=== PATIENT | female | born 2000 | race Caucasian/White ===

== ENCOUNTER 2023-10-29 16:30 | Outpatient (RCR) | payer OTHER, SELFPAY ==
--- NOTE | 2023-09-10 17:43 | OPREHPOC ---
Outpatient Therapy Plan of Care This is a Multidisciplinary Plan of Care that may contain components documented by all disciplines (PT, OT, and ST.) PT Problem 1 PT Problem #1 Knowledge Deficit PT Goal 1 Goal [place] with HEP Target Visit 4 PT Problem 2 PT Problem #2 Impaired Strength PT Goal 1 Goal Improve R rotator external rotation strength to 5/ 5 to improve stability with ADL performance Target Visit 8 PT Goal 2 Goal Improve anna periscapular strength to 4/5 to improve scapular stability with ADL performance Target Visit 8 PT Problem 3 PT Problem #3 Pain PT Goal 1 Goal Report consistent days of 0/10 pain and 75% improvement in quality of sleep Target Visit 8
--- NOTE | 2023-09-10 17:43 | PTOPEVAL1 ---
Assessment and note entered by Gilbert Mcdonald, PT Evaluation Information Assessment Status Evaluation ICD-10 Condition Codes (PT) Cervicalgia M54.2 Onset 2020 Subjective Information Reports that she has had neck issues since high school. Reports no significant change in pain but seeking treatment. Denies any radiating pain at this time. She has history of lifting but has not been doing it recently. She has always had sleeping issues and has discomfort when laying down. She is R handed. She visited chiropractic but did not follow through with treatment. Reported Pain Level Pain Score 1: Self Report Assessment PT Clinical Summary Patient presents with signs and symptoms consistent with shoulder impingement and postural strain of cervical spine. 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 Plan of Care Interventions Electrical Stimulation,Hot Pack/Cold Pack,Manual Therapy,Neuro Re-education,Therapeutic Activities, Therapeutic Exercise Other Interventions Dry Needling PT Services Indicated Yes Treatment Frequency and 1x/week for 8 visits Duration These treatments will address the objective and functional deficits as defined above. The patient will be advanced safely and appropriately in order for the patient to progress towards his/her prior level of function. Additional exercises will be introduced and as well as a comprehensive home exercise program upon discharge, if needed, ?to ensure carryover of functional gains achieved in the clinic. This treatment plan has been reviewed and agreement upon by the patient.
--- NOTE | 2023-10-29 17:27 | PTOPDC ---
Assessment and note entered by Gilbert Mcdonald, PT Evaluation Information Assessment Status Discharge ICD-10 Condition Codes (PT) Cervicalgia M54.2 Onset 2020 Subjective Information Reports that she has had neck issues since high school. Reports no significant change in pain but seeking treatment. Denies any radiating pain at this time. She has history of lifting but has not been doing it recently. She has always had sleeping issues and has discomfort when laying down. She is R handed. She visited chiropractic but did not follow through with treatment. Reported Pain Level Pain Score 6: Self Report Assessment PT Clinical Summary Patient met majority of goals for therapy at this time. Radicular effects are minimal and she has seen strength improvement but still has some minor deficits. 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 Plan of Care PT Services Indicated D/C to HEP
== END 2023-10-30 09:29 | disposition home or self-care (01) ==
LOC: ANHPT 16:30
PROVIDERS: PCP Pediatrics
DX: M54.2 Cervicalgia (principal)
CPT/HCPCS: 97110; 97140; 97161; 97530